=== PATIENT | female | born 1975 | race Caucasian/White ===

== ENCOUNTER → 2016-11-09 | Outpatient (CLI) | payer BC ==
[2016-11-09 07:57] LABS: HEMOGLOBIN 12.9 gm/dl (12.3-15.3); RED BLOOD COUNT 4.28 M/UL (4.00-5.10); WHITE BLOOD COUNT 6.6 K/UL (4.5-11.0)
[2016-11-09 08:14] LABS: BUN/CREATININE RATIO 19 (0-10)
== END ==
LOC: LAB 07:14
PROVIDERS: Nurse Practitioner Family
DX: Z12.31 Encounter for screening mammogram for malignant neoplasm of breast (principal); J20.9 Acute bronchitis, unspecified; N95.9 Unspecified menopausal and perimenopausal disorder; Z13.820 Encounter for screening for osteoporosis
CPT/HCPCS: 36415; 80053; 82607; 82670; 82677; 82679; 84144; 84146; 84402; 84403; 84443; 85025

== ENCOUNTER → 2016-11-10 | Outpatient (CLI) | payer BC | LOC: MAMO 08:48 | DX: Z12.31 Encounter for screening mammogram for malignant neoplasm of breast (principal) | CPT/HCPCS: G0202 ==

== ENCOUNTER → 2016-11-10 | Outpatient (CLI) | payer BC | LOC: KOH-I 10:08 | DX: Z13.820 Encounter for screening for osteoporosis (principal); Z90.710 Acquired absence of both cervix and uterus | CPT/HCPCS: 77080 ==

== ENCOUNTER → 2017-01-31 | Outpatient (CLI) | payer BC ==
[2017-01-31 08:19] LABS: HEMOGLOBIN 13.3 gm/dl (12.3-15.3); RED BLOOD COUNT 4.43 M/UL (4.00-5.10); WHITE BLOOD COUNT 5.3 K/UL (4.5-11.0)
[2017-01-31 08:41] LABS: BUN/CREATININE RATIO 16 (0-10)
== END ==
LOC: LAB 07:34
PROVIDERS: Nurse Practitioner Family
DX: J01.90 Acute sinusitis, unspecified (principal); N95.9 Unspecified menopausal and perimenopausal disorder; E55.9 Vitamin D deficiency, unspecified; F34.1 Dysthymic disorder
CPT/HCPCS: 36415; 80053; 82671; 84144; 84402; 84403; 84443; 85025; 86376; 86800